=== PATIENT | female | born 1960 | race Caucasian/White ===

== ENCOUNTER → 2020-10-08 14:28 | Outpatient (BNVA) | payer MEDICAID, SELFPAY | PROVIDERS: PCP Internal Medicine; Visit Provider Urology ==

== ENCOUNTER 2020-10-22 15:49 | Outpatient (REF) | payer MEDICAID, SELFPAY ==
--- NOTE | ~2020-10-22 | US_ITS ---
EXAMINATION: US RETROPERITONEAL LIMITED (RENAL ONLY) CLINICAL INFORMATION: Calculus of kidney. COMPARISON: CT abdomen and pelvis without contrast dated 05/06/2019. TECHNIQUE: Real-time imaging of the kidneys. FINDINGS: RIGHT KIDNEY: 11.6 x 3.1 x 6.0 cm (SAG x AP x TRV). The kidney is normal in size, contour, and echogenicity. Renal cortical thickness is normal. There are multiple right renal stones. The largest measure 11 x 4 x 9 mm in the mid pole. No focal parenchymal lesions or hydronephrosis. LEFT KIDNEY: Surgically removed. US/US renal BI IMPRESSION: Right renal stones.
[2020-10-22 17:25] LABS: Glucose Urine UA NEG (NEG); Leukocyte Esterase Urine NEG (NEG); Nitrite Urine NEG (NEG); PH 6.5 (5.0-8.0); Urine Blood 1+ (NEG); Urine Ketones NEG (NEG); Urine Protein NEG (NEG-TRACE)
[2020-10-22 17:29] LABS: Appearance Urine CLEAR; Color Urine YELLOW
[2020-10-22 18:30] LABS: Bacteria Urine 3+ /LPF; Squamous Epithelial Cell Urine 3+ /LPF
== END 2020-10-22 15:50 | disposition home or self-care (01) ==
LOC: HO.US 15:49
PROVIDERS: PCP Internal Medicine; Visit Provider Urology
DX: N20.0 Calculus of kidney (principal)
CPT/HCPCS: 76775; 81001; 87086

== ENCOUNTER → 2020-11-06 16:36 | Outpatient (BNVA) | payer MEDICAID, SELFPAY | PROVIDERS: PCP Internal Medicine; Visit Provider Urology ==

== ENCOUNTER → 2020-11-24 08:11 | Outpatient (BNVA) | payer MEDICAID, SELFPAY | PROVIDERS: PCP Internal Medicine; Visit Provider Urology ==

== ENCOUNTER → 2021-05-28 13:39 | Outpatient (BNVA) | payer MEDICAID, SELFPAY | PROVIDERS: PCP Internal Medicine; Visit Provider Urology ==

== ENCOUNTER 2021-06-21 17:13 | Inpatient (IN) | payer MEDICAID, SELFPAY ==
[2021-06-14 20:15] VITALS: BMI 32.9
[2021-06-21] VITALS (9 sets, daily range): BP systolic 103–144; BP diastolic 57–74; PULSE 53–84; RESP 15–18; TEMP 35.7–36.9; O2SAT 96–100
--- NOTE | ~2021-06-21 | FL_ITS ---
EXAMINATION: XR FLUOROSCOPY WITH IMAGES CLINICAL INFORMATION: Cystoscopy. COMPARISON: Previous renal ultrasound October [address] of the abdomen and pelvis April 2019. TECHNIQUE: Fluoroscopy performed by Dr. John Marroquin. Fluoroscopy time: 43 seconds Cumulative dose: 13 mGy Images: 3 FINDINGS: Initial image demonstrates opacification of the right renal collecting system and proximal ureter. Second image demonstrates wire in the upper pole of the right renal collecting system, renal pelvis and ureter. Final image demonstrates a large bore catheter in the right ureter and smaller catheter projecting over the right renal collecting system. FL/FL guidance in OR IMPRESSION: Fluoroscopy guidance for urologic procedure.
[2021-06-21] MEDS: Lactated Ringers 1,000 ML 100 ML IVCONT (14:01)
[2021-06-21 14:33] LABS: COVID-19 Test Negative (Negative); IDNOW Serial# 16C4AD1C
--- NOTE | 2021-06-21 14:57 | PC.NURSE ---
patient moved to pacu 12, awaiting procedure. report given to JAIME Perez.
--- NOTE | 2021-06-21 15:41 | HO.ANESPROP2 ---
HPI - Anesthesia Eval Consult details Narrative: 61 F for cystoscopy , Ureteroscopy , Laser. HTN , COPD , BRUNO , 2 Liter home oxygen . CVA 2015 , diffuse weakness , left LE and RUE are the worse worse, speech also affected as per patient . s/p Cardiac arrest x 2 amniotic fluid emblolism , anaphylaxis to rocuronium , chronic opiods , s/p right nephrectomy ,GERD . Miagranes , fibromyalgia As per patient she has been on coumadin in the past , saw primary care few weeks ago and as per patient was told that she is optimized for the procedure PMFSH Active Problems Active Problems: All Active Problems (Updated 06/14/21 @ 20:22 by Iris Bauer RN) Nephrolithiasis (Acute) Nephrogenic adenoma of bladder (Acute) Chronic UTI (urinary tract infection) (Acute) Past Medical History Medical History Abnormal gait Acidosis Anxiety Asthenia Back pain COPD (chronic obstructive pulmonary disease) Diabetes GERD (gastroesophageal reflux disease) Headache History of DVT (deep vein thrombosis) HTN (hypertension) Insomnia Nonfunctioning kidney BRUNO (obstructive sleep apnea) Oxygen dependent Recurrent Clostridium difficile diarrhea Recurrent nephrolithiasis Recurrent UTI Renal stones Schizoaffective disorder Stroke Family History Family history of problems with anesthesia: No Surgical History Surgical History History of exploratory laparotomy History of gastric bypass History of palate surgery History of repair of ear bone History of surgery History of tonsillectomy History of Problems with Anesthesia: Yes (Anaphylaxis to rocuronium ) Social History Social History Patient Tobacco Use Status: Current everyday Tobacco user Tobacco use type: Cigarette Cigarette Packs Per Day: 0.75 Cigarettes Per Day: 15.0 Years Smoked: 15 Smoked in Last 30 Days: Yes Use of substances other than those prescribed or required for medical reasons: Yes Substance Use Frequency: Daily Are you DNR?: No Advance Directives: No Advance Directives Information Provided: No Advance Directives on File: No Recently lost weight without trying: No Nutrition Risks: No Nutritional Risk Meds Allergies Allergy/AdvReac Type Severity Reaction Status Date / Time fluconazole Allergy Unknown Unknown Verified 05/28/21 13:39 fluticasone [Advair Diskus] Allergy Unknown Unknown Verified 05/28/21 13:39 loratadine [Claritin] Allergy Unknown Unknown Verified 05/28/21 13:39 morphine Allergy Unknown Unknown Verified 05/28/21 13:39 nortriptyline Allergy Unknown Unknown Verified 05/28/21 13:39 rocuronium Allergy Unknown Unknown Verified 05/28/21 13:39 salmeterol [Advair Diskus] Allergy Unknown Unknown Verified 05/28/21 13:39 Latex, Natural Rubber Allergy Itching Verified 06/14/21 20:18 Active Medications: Current Medications Albuterol Sulfate (Albuterol Sulfate (0.083%) 2.5 Mg/3 Ml Vial.Neb) 2.5 mg INHALE ONCE PRN PRN Reason: Shortness of Breath/Wheezing Lactated Ringer's (Lr) 1,000 mls @ 100 mls/hr IVCONT .Q10H [facility] Last Admin: 06/21/21 14:01 Dose: 100 mls/hr Documented by: Home Medications Medication Instructions Recorded Confirmed Last Taken Type allopurinol 300 mg tablet 300 mg PO DAILY 05/28/21 06/14/21 Unknown History budesonide-formoterol HFA 160 2 puff PO BID 05/28/21 06/14/21 Unknown History mcg-4.5 mcg/actuation aerosol inhaler (Symbicort) buspirone 10 mg tablet 10 mg PO BID 05/28/21 06/14/21 Unknown History clonidine HCl 0.1 mg tablet 0.1 mg PO DAILY PRN 05/28/21 06/14/21 Unknown History divalproex 500 mg tablet,extended 500 mg PO DAILY 05/28/21 06/14/21 Unknown History release 24 hr duloxetine 60 mg capsule,delayed 60 mg PO DAILY 05/28/21 06/14/21 Unknown History release fluoxetine 10 mg capsule 10 mg PO DAILY 05/28/21 06/14/21 Unknown History fluoxetine 40 mg capsule 40 mg PO QAM 05/28/21 06/14/21 Unknown History gabapentin 600 mg tablet 600 mg PO TID 05/28/21 06/14/21 Unknown History quetiapine 50 mg tablet 50 mg PO DAILY 05/28/21 06/14/21 Unknown History roflumilast 500 mcg tablet 500 mcg PO DAILY 05/28/21 Unknown History (Juan Davidiresp) trazodone 50 mg tablet 100 mg PO BEDTIME 05/28/21 06/14/21 Unknown History albuterol sulfate 90 mcg/actuation 2 puff INHALATION Q4-6H PRN 06/14/21 06/14/21 Unknown History aerosol inhaler (ProAir HFA) fluticasone propionate 50 1 spray INTRANASAL BID 06/14/21 06/14/21 Unknown History mcg/actuation nasal spray,suspension umeclidinium 62.5 mcg/actuation 1 puff PO DAILY 06/14/21 06/14/21 Unknown History blister powder for inhalation (Incruse Ellipta) Exam Exam Date and Time: June 21, 2021 1541 Height,Weight and Vital Signs: Height 5 ft 5 in Weight 89.811 kg Last Vital Signs Temp 98.2 F 06/21/21 14:03 Pulse 75 06/21/21 14:03 Resp 18 06/21/21 14:03 BP 139/74 06/21/21 14:03 Pulse Ox 96 06/21/21 14:03 Pertinent Lab Results Pertinent Lab Results: Laboratory Tests 06/21/21 13:59 COVID-19 ([facility]) Negative COVID-19 Clin Com See Note Airway Mallampati Class: II TM Dist: >3cm Neck ROM: Full Loose/Missing/Broken Teeth: Yes Heart: rrr Lungs: distant breath sounds Assessment and Plan Assessment Anesthesia Assessment: Anesthesia Plan Discussed and Chart Reviewed Final Anesthetic Review Family History of Problems with Anesthesia: No History of Problems with Anesthesia: Yes (Anaphylaxis to rocuronium ) NPO: Yes ASA Class: IV Final Preanesthetic Review: Meds/Allgs Chart Reviewed, Consent Obtained/Reviewed and Anes Risks/Benef Reviewed Patient Risk: High Procedure Risk: Intermediate Anesthetic Plan Anesthetic Plan: GA Disposition: Inp. Admit - Standard Bed
--- NOTE | 2021-06-21 16:32 | P.HPSUR_ITS ---
Pre-Procedural Eval Section A Date of Service: 06/21/21 The patient is an INPATIENT: No Changes since office visit: No Cold of Flu in the past 2 weeks, No New Medical Problems, No Changes in Medication and No Patient answered all questions The History & Physical has been completed within 30 days and I have reviewed it.: No Section B Chief Complaint: kidney stone Details of Present Illness: right renal stone Relevant Family History (Specify if Yes): No Relevant Social History: Tobacco Use Present Medications: see Short Stay Collaborative assessment Medical History: Significant History History of Previous Operations: No relevant previous surgery Allergies: Allergies Allergy/AdvReac Type Severity Reaction Status Date / Time fluconazole Allergy Unknown Unknown Verified 05/28/21 13:39 fluticasone [Advair Diskus] Allergy Unknown Unknown Verified 05/28/21 13:39 loratadine [Claritin] Allergy Unknown Unknown Verified 05/28/21 13:39 morphine Allergy Unknown Unknown Verified 05/28/21 13:39 nortriptyline Allergy Unknown Unknown Verified 05/28/21 13:39 rocuronium Allergy Unknown Unknown Verified 05/28/21 13:39 salmeterol [Advair Diskus] Allergy Unknown Unknown Verified 05/28/21 13:39 Latex, Natural Rubber Allergy Itching Verified 06/14/21 20:18 Review of Systems Sugical H&P ROS: Negative: Constitution, Cardiovascular, Respiratory, Neurologi javed, Psychiatric, Hem-Onc, Allergic/Immunologic, Gastrointestinal, Genitourinary, Musculoskeletal, Integumentary, Endocrine and Eyes/Ears/Nose/Throat Exam Surgical H&P Exam: Normal: HEENT, Normal: Heart, Normal: Lungs, Normal: Extremities, Normal: Abdomen, Normal: Skin and Normal: Neurological Plan Diagnosis/Plan: Unchanged ( cystoscopy, right retrograde, right ureteroscopy with laser lithotripsy stent placement) I have reviewed the history and physical and performed a pertinent physical examination on my patient. No changes have occurred unless specified.
--- NOTE | 2021-06-21 17:17 | P.OP_ITS ---
Operative Note Operative Note Date of Service: 06/21/21 Narrative: PreOperative Diagnosis: right renal stones Post Operative Diagnosis: right renal stones, bladder prolapse Procedure: - cystoscopy, right retrograde - right dilatation of ureteric orifice under fluoroscopy - right ureteroscopy, stone basketing - right stent placement Surgeon: Dr John Marroquin Anesthesia: General Indications for procedure: recurring UTI. Question of stones with stone contribution. imaging with 1.2 cm stone right side. Has had ESWL. At time of surgery is found to have a bladder prolapse Procedure: After informed consent was verified patient was brought to the operating placed in supine position. Anesthesia was administered per protocol. Patient was placed in modified dorsal lithotomy position and prepped and draped in a sterile fashion. Safety pause time-out and side of surgery confirmed. Antibiotics confirmed. 22 Palestinian cystoscope was inserted per urethra. Bladder was normal in its entirety. Both ureteric orifices were in normal position. The Right ureteric orifice was cannulated and a retrograde examination was performed. small filling defect noted in renal pelvis . A Sensor guidewire was placed up to the level of the renal pelvis under fluoroscopy. The rigid cystoscope was removed and the inner cannula of ureteric access sheath was used under fluoroscopy to dilate the ureteric orifice. The ureteric access sheath was placed and the inner cannula with access wire removed. The digital flexible ureteral scope was placed. renal pelvis was examined. Stone fragments were found. Using a basket these were removed and ranged in size up to 5 Will 6 mm. Renal pelvis irrigated. Decision made not to leave stent The bladder was emptied. The patient tolerated the procedure well and was extubated in the operating room, and transferred in stable condition to the recovery area. Pathology: renal stones Drains: no stent
[2021-06-21] MEDS: Ketorolac Tromethamine 15 MG/ML VIAL IVPUSH (18:38)
[2021-06-21] MEDS: Acetaminophen 325 MG TABLET 650 MG PO (18:39)
[2021-06-21] MEDS: 0.9 % Sodium Chloride 1,000 ML 80 ML IVCONT (18:40)
[2021-06-21] MEDS: FLUoxetine HCl 20 MG CAPSULE 40 MG PO (18:43)
[2021-06-21] MEDS: vancomycin HCL 125 MG CAPSULE PO (18:47)
[2021-06-21] MEDS: Gabapentin 600 MG TABLET PO (20:47)
[2021-06-21] MEDS: Docusate Sodium 100 MG CAPSULE PO (20:47)
[2021-06-21] MEDS: traZODone HCL 100 MG TABLET PO (20:47)
[2021-06-21] MEDS: busPIRone HCl 10 MG TABLET PO (20:47)
[2021-06-22] VITALS (7 sets, daily range): BP systolic 106–159; BP diastolic 55–86; PULSE 55–69; RESP 14–18; TEMP 35.8–37; O2SAT 94–98
[2021-06-22] MEDS: vancomycin HCL 125 MG CAPSULE PO ×4 (00:38→18:05)
[2021-06-22] MEDS: Ketorolac Tromethamine 15 MG/ML VIAL IVPUSH ×4 (00:38→18:04)
[2021-06-22] MEDS: 0.9 % Sodium Chloride Flush 3 ML SYRINGE IVFLUSH (00:38)
--- NOTE | 2021-06-22 06:40 | HO.POSTANES ---
Post Anesthesia Evaluation Post Anesthesia Evaluation Vital Signs: Vital Signs Temp Pulse Resp BP Pulse Ox 06/22/21 03:41 96.5 F L 59 14 106/55 L 95 06/21/21 23:25 96.3 F L 53 16 103/58 L 96 06/21/21 19:18 98.3 F 62 18 144/69 H 98 Anesthesia: General Mental Status: Awake Pain Control: Satisfactory Nausea/Vomiting: None Hydration: Adequate Anesthesia-Related Issues: No Anes. Related Issues
--- NOTE | 2021-06-22 07:10 | PC.NURSE ---
PATIENT A/O X 3, S/P UROLOGY PROCEDURE AND NOTED TO BE INCONTINENT OF URINE AT 0100 WHICH WAS A LARGE AMOUNT AND BLOODY. DR. SALMERON NOTIFIED BY TIGER TEXT TO SEE IF THIS SHOULD BE EXPECTED AND HE REPLIED IT WAS OKAY. IVF ORDERED, SCHEDULED IVP TORADOL ORDERED. INCONTINENT AGAIN AT 0600 AND STILL BLOODY BUT MUCH LESS SO. DAY RN UPDATED. NO CHANGE TO PATIENT STATUS.
[2021-06-22] MEDS: DULoxetine HCl 60 MG CAPSULE.DR PO (07:39)
[2021-06-22] MEDS: FLUoxetine HCl 10 MG CAPSULE PO (07:39)
[2021-06-22] MEDS: Gabapentin 600 MG TABLET PO ×3 (07:40→20:05)
[2021-06-22] MEDS: FLUoxetine HCl 20 MG CAPSULE 40 MG PO (07:40)
[2021-06-22] MEDS: QUEtiapine Fumarate 50 MG TABLET PO (07:41)
[2021-06-22] MEDS: Divalproex Sodium ER 500 MG TAB.ER.24H PO (07:41)
[2021-06-22] MEDS: allopurinoL 300 MG TABLET PO (07:41)
[2021-06-22] MEDS: busPIRone HCl 10 MG TABLET PO ×2 (07:42→20:05)
--- NOTE | 2021-06-22 09:58 | MHC.CM.PN ---
PATIENT LIVES WITH FORMER SPOUSE AND DAUGHTER. DAUGHTER SERVES CALL PERSON. PATIENT RELIES ON A WHEEL CHAIR SHE DOES HAVE A WALKER, COMMODE, TUB BENCH, AND GRAB BARS IN THE HOME. SHE ASKS FOR ASSISTANCE WITH FINDING AN APARTMENT AND THIS PLASTIC CABLEMAKING MACHINE OPERATOR GAVE HER WAYFINDERS CONTACT SHEET. HCP IS ON FILE AT DR JADIEL MESA OFFICE IN [facility]. COPY REQUESTED. PLAN IS HOME WITH RESUMPTION OF CALL PERSON HOURS. CASE MANAGEMENT FOLLOWING FOR ANY CHANGES IN PLAN. PATIENT IS VACCINATED X 2 WITH MODERNA SERIES AND IS SCHEDULED FOR HER BOOSTER. NO RECALL ABOUT THE DATES BUT IF SHE FINDS HER CARD, SHE WILL LET CASE MANAGEMENT KNOW SO THAT INFO CAN BE ADDED TO EXPANSE
--- NOTE | 2021-06-22 16:30 | PM.UROPN ---
Subjective Subjective Date of Service: 06/22/21 Interval history: Minimal right flank pain Discussed operative findings yesterday with stones in kidney Vital signs stable Removal of IV fluid today Social work assessment pending Physical Exam Vital Signs: Vital Signs: Last Vital Signs Temp 97.9 F 06/22/21 15:53 Pulse 61 06/22/21 15:53 Resp 18 06/22/21 15:53 BP 139/75 06/22/21 15:53 Pulse Ox 97 06/22/21 15:53 BMI result Body Mass Index 32.9 Const: General: cooperative, healthy appearing, comfortable and no acute distress Orientation/consciousness: patient oriented x3 HENMT: Face and sinus: Yes normal facial exam Mouth: moist mucous membranes Neck: Neck: Yes normal visual inspection, Yes full ROM and Yes trachea midline Chest: Chest palpation & inspection: normal inspection of the chest Resp: Effort & Inspection: normal respiratory effort, able to speak in complete sentences and no respiratory distress GI: Inspection: Yes normal to inspection Back/Spine/Pelvis: Cervical Spine: normal cervical lordosis Thoracic/Lumbar Spine: thoracic and lumbar spine normal to inspection Skin: General skin exam: no rashes or lesions noted Neuro: General: patient oriented x3, tone normal and moves all extremities Extrem: General: Yes normal to inspection and Yes capillary refill normal Progress Note: A&P Assessment and plan (1) Nephrolithiasis: Status: Acute (2) Chronic UTI (urinary tract infection): Status: Acute Plan Plan for discharge tomorrow Fall Risk Details Current Medications: Current Medications Acetaminophen (Acetaminophen 325 Mg Tablet) 650 mg PO Q6H PRN PRN Reason: headache Albuterol Sulfate (Albuterol Sulfate (0.083%) 2.5 Mg/3 Ml Vial.Neb) 2.5 mg INHALE ONCE PRN PRN Reason: Shortness of Breath/Wheezing Albuterol Sulfate (Albuterol Sulfate 90 Mcg 8 Gm Inhaler) 2 puff INHALE Q4H PRN PRN Reason: Shortness Of Breath Or Wheezing Allopurinol (Allopurinol 300 Mg Tablet) 300 mg PO DAILY [facility] Last Admin: 06/22/21 07:41 Dose: 300 mg Documented by: Buspirone HCl (Buspirone Hcl 10 Mg Tablet) 10 mg PO BID [facility] Last Admin: 06/22/21 07:42 Dose: 10 mg Documented by: Clonidine HCl (Clonidine Hcl 0.1 Mg Tablet) 0.1 mg PO DAILY PRN; Protocol PRN Reason: panic attack Divalproex Sodium (Divalproex Sodium Er 500 Mg Tab.Er.24h) 500 mg PO DAILY [facility] Last Admin: 06/22/21 07:41 Dose: 500 mg Documented by: Docusate Sodium (Docusate Sodium 100 Mg Capsule) 100 mg PO BID [facility] Last Admin: 06/22/21 10:01 Dose: Not Given Documented by: Duloxetine HCl (Duloxetine Hcl 60 Mg Capsule.Dr) 60 mg PO DAILY [facility] Last Admin: 06/22/21 07:39 Dose: 60 mg Documented by: Fentanyl (Fentanyl Citrate/Pf 100 Mcg/2 Ml Vial) 25 mcg IVPUSH Q5M PRN; Protocol PRN Reason: Pain, Moderate (Pain Scale 4-6 Fluoxetine HCl (Fluoxetine Hcl 10 Mg Capsule) 10 mg PO DAILY [facility] Last Admin: 06/22/21 07:39 Dose: 10 mg Documented by: Fluoxetine HCl (Fluoxetine Hcl 20 Mg Capsule) 40 mg PO DAILY [facility] Last Admin: 06/22/21 07:40 Dose: 40 mg Documented by: Gabapentin (Gabapentin 600 Mg Tablet) 600 mg PO TID [facility] Last Admin: 06/22/21 15:17 Dose: 600 mg Documented by: Ketorolac Tromethamine (Ketorolac Tromethamine 15 Mg/Ml Vial) 15 mg IVPUSH Q6H [facility] Last Admin: 06/22/21 12:45 Dose: 15 mg Documented by: Quetiapine Fumarate (Quetiapine Fumarate 50 Mg Tablet) 50 mg PO DAILY [facility] Last Admin: 06/22/21 07:41 Dose: 50 mg Documented by: Trazodone HCl (Trazodone Hcl 100 Mg Tablet) 100 mg PO BEDTIME [facility] Last Admin: 06/21/21 20:47 Dose: 100 mg Documented by: Vancomycin HCl (Vancomycin Hcl 125 Mg Capsule) 125 mg PO Q6H [facility] Last Admin: 06/22/21 12:45 Dose: 125 mg Documented by: Time Spent With Patient Time: Total time spent is greater than 50% in coordination of care (as documented) at patient's floor/unit and/or counseling patient: Time with patient: less than 15 minutes
[2021-06-22] MEDS: Acetaminophen 325 MG TABLET 650 MG PO (18:05)
[2021-06-22] MEDS: traZODone HCL 100 MG TABLET PO (20:05)
[2021-06-22] MEDS: Docusate Sodium 100 MG CAPSULE PO (20:05)
[2021-06-23] MEDS: Ketorolac Tromethamine 15 MG/ML VIAL IVPUSH ×2 (00:37→05:23)
[2021-06-23] MEDS: vancomycin HCL 125 MG CAPSULE PO ×3 (00:38→13:41)
[2021-06-23 03:19] VITALS: BP 108/60; PULSE 53; RESP 18; TEMP 36; O2SAT 94
[2021-06-23 07:52] VITALS: BP 128/71; PULSE 62; RESP 18; TEMP 36.2; O2SAT 98
[2021-06-23] MEDS: allopurinoL 300 MG TABLET PO (08:34)
[2021-06-23] MEDS: busPIRone HCl 10 MG TABLET PO (08:34)
[2021-06-23] MEDS: DULoxetine HCl 60 MG CAPSULE.DR PO (08:34)
[2021-06-23] MEDS: Gabapentin 600 MG TABLET PO ×2 (08:34→13:40)
[2021-06-23] MEDS: Docusate Sodium 100 MG CAPSULE PO (08:34)
[2021-06-23] MEDS: FLUoxetine HCl 20 MG CAPSULE 40 MG PO (08:34)
[2021-06-23] MEDS: Divalproex Sodium ER 500 MG TAB.ER.24H PO (08:34)
[2021-06-23] MEDS: FLUoxetine HCl 10 MG CAPSULE PO (08:34)
--- NOTE | 2021-06-23 11:08 | P.PNUR_ITS ---
Subjective Subjective Date of Service: 06/23/21 Interval history: Doing well Has been seen by delinquency prevention social worker Discussed pessary use for incomplete bladder emptying and recurrent UTI Minimal pain Discharge today Physical Exam Vital Signs: Vital Signs: Last Vital Signs Temp 97.2 F 06/23/21 07:52 Pulse 62 06/23/21 07:52 Resp 18 06/23/21 07:52 BP 128/71 06/23/21 07:52 Pulse Ox 98 06/23/21 07:52 Oxygen Flow Rate 2 06/22/21 17:09 BMI result Body Mass Index 32.9 Const: General: cooperative, healthy appearing, comfortable and no acute distress Orientation/consciousness: patient oriented x3 HENMT: Face and sinus: Yes normal facial exam Mouth: moist mucous membranes Neck: Neck: Yes normal visual inspection, Yes full ROM and Yes trachea midline Chest: Chest palpation & inspection: normal inspection of the chest Resp: Effort & Inspection: normal respiratory effort, able to speak in complete sentences and no respiratory distress GI: Inspection: Yes normal to inspection Back/Spine/Pelvis: Cervical Spine: normal cervical lordosis Thoracic/Lumbar Spine: thoracic and lumbar spine normal to inspection Skin: General skin exam: no rashes or lesions noted Neuro: General: patient oriented x3, tone normal and moves all extremities Extrem: General: Yes normal to inspection and Yes capillary refill normal Progress Note: A&P Assessment and plan (1) Nephrolithiasis: Status: Acute (2) Cystocele with first degree uterine prolapse: Status: Acute (3) Chronic UTI (urinary tract infection): Status: Acute Plan Discharge today Fall Risk Details Current Medications: Current Medications Acetaminophen (Acetaminophen 325 Mg Tablet) 650 mg PO Q6H PRN PRN Reason: headache Last Admin: 06/22/21 18:05 Dose: 650 mg Documented by: Albuterol Sulfate (Albuterol Sulfate (0.083%) 2.5 Mg/3 Ml Vial.Neb) 2.5 mg INHALE ONCE PRN PRN Reason: Shortness of Breath/Wheezing Albuterol Sulfate (Albuterol Sulfate 90 Mcg 8 Gm Inhaler) 2 puff INHALE Q4H PRN PRN Reason: Shortness Of Breath Or Wheezing Allopurinol (Allopurinol 300 Mg Tablet) 300 mg PO DAILY [facility] Last Admin: 06/23/21 08:34 Dose: 300 mg Documented by: Buspirone HCl (Buspirone Hcl 10 Mg Tablet) 10 mg PO BID [facility] Last Admin: 06/23/21 08:34 Dose: 10 mg Documented by: Clonidine HCl (Clonidine Hcl 0.1 Mg Tablet) 0.1 mg PO DAILY PRN; Protocol PRN Reason: panic attack Divalproex Sodium (Divalproex Sodium Er 500 Mg Tab.Er.24h) 500 mg PO DAILY [facility] Last Admin: 06/23/21 08:34 Dose: 500 mg Documented by: Docusate Sodium (Docusate Sodium 100 Mg Capsule) 100 mg PO BID [facility] Last Admin: 06/23/21 08:34 Dose: 100 mg Documented by: Duloxetine HCl (Duloxetine Hcl 60 Mg Capsule.Dr) 60 mg PO DAILY [facility] Last Admin: 06/23/21 08:34 Dose: 60 mg Documented by: Fentanyl (Fentanyl Citrate/Pf 100 Mcg/2 Ml Vial) 25 mcg IVPUSH Q5M PRN; Protocol PRN Reason: Pain, Moderate (Pain Scale 4-6 Fluoxetine HCl (Fluoxetine Hcl 10 Mg Capsule) 10 mg PO DAILY [facility] Last Admin: 06/23/21 08:34 Dose: 10 mg Documented by: Fluoxetine HCl (Fluoxetine Hcl 20 Mg Capsule) 40 mg PO DAILY [facility] Last Admin: 06/23/21 08:34 Dose: 40 mg Documented by: Gabapentin (Gabapentin 600 Mg Tablet) 600 mg PO TID [facility] Last Admin: 06/23/21 08:34 Dose: 600 mg Documented by: Ketorolac Tromethamine (Ketorolac Tromethamine 15 Mg/Ml Vial) 15 mg IVPUSH Q6H [facility] Last Admin: 06/23/21 05:23 Dose: 15 mg Documented by: Quetiapine Fumarate (Quetiapine Fumarate 50 Mg Tablet) 50 mg PO DAILY [facility] Last Admin: 06/23/21 08:37 Dose: Not Given Documented by: Trazodone HCl (Trazodone Hcl 100 Mg Tablet) 100 mg PO BEDTIME [facility] Last Admin: 06/22/21 20:05 Dose: 100 mg Documented by: Vancomycin HCl (Vancomycin Hcl 125 Mg Capsule) 125 mg PO Q6H [facility] Last Admin: 06/23/21 05:23 Dose: 125 mg Documented by: Time Spent With Patient Time: Total time spent is greater than 50% in coordination of care (as documented) at patient's floor/unit and/or counseling patient: Time with patient: less than 15 minutes
--- NOTE | 2021-06-23 11:10 | PM.DS ---
DS: Providers Provider Date of Service: 06/23/21 Date of admission: 06/21/21 17:13 Date of discharge: 06/23/21 Primary care physician: Nonstaff Physician Admitting clinician: John Marroquin Attending physician on discharge: John Marroquin DS: Diagnosis Discharge Diagnosis (1) Nephrolithiasis: Status: Acute (2) Cystocele with first degree uterine prolapse: Status: Acute (3) Chronic UTI (urinary tract infection): Status: Acute DS: Summary Hospital Course Hospital Course: Admitted for right ureteroscopy laser lithotripsy. Stent did not need to be placed Noted to have cystocele at time of procedure which may be responsible for chronic incomplete bladder emptying and recurring UTI Time spent discussing smoking cessation with patient: 3 to 10 minutes Status at Discharge Functional status at discharge: wheelchair bound Overall status at discharge: patient is back to baseline Time Spent with Patient Time attestation: Total time spent providing and/or coordinating discharge services: Discharge coordination time: Less than 30 minutes Quality: Stroke Does the patient have a stroke diagnosis?: No Physical Exam Vital Signs: Vital Signs: Last Vital Signs Temp 97.2 F 06/23/21 07:52 Pulse 62 06/23/21 07:52 Resp 18 06/23/21 07:52 BP 128/71 06/23/21 07:52 Pulse Ox 98 06/23/21 07:52 Oxygen Flow Rate 2 06/22/21 17:09 BMI result Body Mass Index 32.9 Const: General: cooperative, healthy appearing, comfortable and no acute distress Orientation/consciousness: patient oriented x3 HENMT: Face and sinus: Yes normal facial exam Mouth: moist mucous membranes Neck: Neck: Yes normal visual inspection, Yes full ROM and Yes trachea midline Chest: Chest palpation & inspection: normal inspection of the chest Resp: Effort & Inspection: normal respiratory effort, able to speak in complete sentences and no respiratory distress GI: Inspection: Yes normal to inspection Back/Spine/Pelvis: Cervical Spine: normal cervical lordosis Thoracic/Lumbar Spine: thoracic and lumbar spine normal to inspection Skin: General skin exam: no rashes or lesions noted Neuro: General: patient oriented x3, tone normal and moves all extremities Extrem: General: Yes normal to inspection and Yes capillary refill normal DS: Data Data Completed and Pending Pending studies at discharge: Pending at discharge 06/21/21 17:09 Surgical [PTH] Routine Discharge Plan Discharge Patient Disposition: Home, Self-Care Discharge Diagnosis: Right renal stones Referrals: PhysicianClarice [Primary Care Provider] - 1 Week Discharge Medications: Continued Incruse Ellipta 62.5 mcg/actuation blister with device 1 puff PO DAILY 0RF albuterol sulfate [ProAir HFA] 90 mcg/actuation Hfa Aerosol Inhaler 2 puff INHALATION Q4-6H PRN (Reason: Shortness Of Breath Or Wheezing) 0RF fluticasone propionate 50 mcg/actuation [place],Suspension 1 spray INTRANASAL BID 0RF Rx Instructions: administer into each nostril gabapentin 600 mg tablet 600 mg PO TID 0RF Daliresp 500 mcg tablet 500 mcg PO DAILY 0RF duloxetine 60 mg capsule,delayed release(DR/EC) 60 mg PO DAILY 0RF divalproex 500 mg tablet extended release 24 hr 500 mg PO DAILY 0RF fluoxetine 10 mg capsule 10 mg PO DAILY 0RF buspirone 10 mg tablet 10 mg PO BID 0RF trazodone 50 mg tablet 100 mg PO BEDTIME 0RF clonidine HCl 0.1 mg tablet 0.1 mg PO DAILY PRN (Reason: panic attack) 0RF fluoxetine 40 mg capsule 40 mg PO QAM 0RF quetiapine 50 mg tablet 50 mg PO DAILY 0RF allopurinol 300 mg tablet 300 mg PO DAILY 0RF budesonide-formoterol [Symbicort] 160-4.5 mcg/actuation HFA aerosol inhaler 2 puff PO BID 0RF hydromorphone 2 mg tablet 2 mg PO Q6H PRN (Reason: pain) 30 Days Qty: 20 0RF Discharge Orders: Discharge Order (Routine); Ordered 06/23/21 Ordered By: John Marroquin Diet: advance to usual diet Activity on Discharge: As tolerated Stand Alone Forms: Patient Portal Discharge page Care Plan Goals: Stones Health Concerns: Stones Plan of Treatment: Stones Assessment: Stones
[2021-06-23 12:00] VITALS: BP 159/76; PULSE 70; RESP 18; TEMP 36.5; O2SAT 92
[2021-06-23] MEDS: Acetaminophen 325 MG TABLET 650 MG PO (13:47)
[2021-06-26 01:36] LABS: Stone Source KIDNEY STONE
== END 2021-06-23 15:39 | disposition home or self-care (01) | DRG 446 ==
LOC: HO.S3 06-22 10:14
PROVIDERS: Anesthesiology; Admitting Provider Urology; PCP Internal Medicine; Visit Provider Urology
PROC: 0TC68ZZ Extirpation of Matter from Right Ureter, Via Natural or Artificial Opening Endoscopic (ICD-10-PCS; CPT 52352; principal; 2021-06-21 15:10)
DX: N20.0 Calculus of kidney (principal); F17.210 Nicotine dependence, cigarettes, uncomplicated; N81.2 Incomplete uterovaginal prolapse; N39.0 Urinary tract infection, site not specified; Z87.440 Personal history of urinary (tract) infections; Z20.822 Contact with and (suspected) exposure to COVID-19; Z98.84 Bariatric surgery status; Z71.6 Tobacco abuse counseling; Z91.040 Latex allergy status; Z79.51 Long term (current) use of inhaled steroids; Z79.899 Other long term (current) drug therapy
CPT/HCPCS: 52352; 82365; 87635; 88300; 99218; C1758; C1769; J1100; J1335; J1885; J2250; J2405; J3010; Q9967

== ENCOUNTER 2022-03-10 12:27 | Outpatient (REF) | payer MEDICAID, SELFPAY ==
--- NOTE | ~2022-03-10 | US_ITS ---
EXAMINATION: US RETROPERITONEAL LIMITED (RENAL ONLY) CLINICAL INFORMATION: Calculus of kidney. COMPARISON: Renal ultrasound 10/22/2020. CT abdomen and pelvis 05/06/2019. TECHNIQUE: Real-time imaging of the solitary right kidney. FINDINGS: RIGHT KIDNEY: 12.4 x 3.4 x 5.1 cm (SAG x AP x TRV). The kidney is normal in size, contour, and echogenicity. Renal cortical thickness is normal. There are multiple right renal stones largest measuring 7 x 3 x 8 mm in the upper pole and 6 x 2 x 6 mm in the lower pole. No focal parenchymal lesions or hydronephrosis. LEFT KIDNEY: Surgically absent. US/US renal BI IMPRESSION: Multiple right renal stones.
[2022-03-10 14:06] LABS: Appearance Urine Cloudy; Color Urine Red; Glucose Urine UA Negative (Negative); Leukocyte Esterase Urine Moderate (2+) (Negative); Nitrite Urine Positive (Negative); Specific Gravity - Urine 1.015 (1.005-1.025); UMIC TRIGGER UA YES; Urine Blood Large (3+) (Negative); Urine Ketones Negative (Negative); Urine Protein 100 (2+) mg/dL (Neg-Trace)
[2022-03-10 14:09] LABS: Bacteria Urine 3+ (None Seen); Hyaline Casts Urine 0-2 /LPF (0-2); RBC Urine >20 /HPF (0-2); Squamous Epithelial Cell Urine 0-2 /HPF (0-2); WBC Urine >50 /HPF (0-5)
== END 2022-03-10 12:28 | disposition home or self-care (01) ==
LOC: HO.US 12:27
PROVIDERS: PCP Internal Medicine; Visit Provider Urology
DX: N20.0 Calculus of kidney (principal); N39.0 Urinary tract infection, site not specified
CPT/HCPCS: 76775; 81001; 87086

== ENCOUNTER → 2022-05-02 08:41 | Outpatient (BNVA) | payer MEDICAID, SELFPAY | PROVIDERS: PCP Internal Medicine; Visit Provider Nurse Practitioner Family | DX: Z13.89 Encounter for screening for other disorder (principal) ==